=== PATIENT | female | born 1995 | race Caucasian/White ===

== ENCOUNTER 2022-12-13 10:15 | Outpatient (CLI) | payer OTHER | END 2022-12-13 15:29 | disposition home or self-care (01) | LOC: LAB 10:15 | DX: Z3A.12 12 weeks gestation of pregnancy (principal); Z34.81 Encounter for supervision of other normal pregnancy, first trimester; Z30.9 Encounter for contraceptive management, unspecified ==

== ENCOUNTER → 2022-12-17 09:41 | Outpatient (CLI) | payer OTHER | END | disposition home or self-care (01) | LOC: LAB 09:41 | DX: R19.4 Change in bowel habit (principal) ==

== ENCOUNTER 2023-01-21 09:40 | Outpatient (CLI) | payer OTHER | END 2023-01-21 10:53 | disposition home or self-care (01) | LOC: PRENATAL 09:40 | PROVIDERS: ATTEND Obstetrics & Gynecology Maternal & Fetal Medicine | DX: O35.9XX0 Maternal care for (suspected) fetal abnormality and damage, unspecified, not applicable or unspecified (principal); O35.3XX0 Maternal care for (suspected) damage to fetus from viral disease in mother, not applicable or unspecified; Z3A.20 20 weeks gestation of pregnancy ==

== ENCOUNTER 2023-04-15 11:37 | Outpatient (CLI) | payer OTHER | END 2023-04-15 11:45 | disposition home or self-care (01) | LOC: SONOGRAMA 11:37 | PROVIDERS: ATTEND Obstetrics & Gynecology | DX: Z34.83 Encounter for supervision of other normal pregnancy, third trimester (principal) ==

== ENCOUNTER 2025-01-14 14:30 | Outpatient (CLI) | payer OTHER | END 2025-01-14 14:33 | disposition home or self-care (01) | LOC: PRENATAL 14:30 | PROVIDERS: ATTEND Obstetrics & Gynecology Maternal & Fetal Medicine | DX: O26.849 Uterine size-date discrepancy, unspecified trimester (principal); O36.8199 Decreased fetal movements, unspecified trimester, other fetus; O36.1999 Maternal care for other isoimmunization, unspecified trimester, other fetus; Z14.8 Genetic carrier of other disease; Z3A.34 34 weeks gestation of pregnancy ==